=== PATIENT | female | born 1930 | race Caucasian/White ===

== ENCOUNTER 2017-06-14 17:36 | Inpatient (IN) | payer MEDICARE, BC ==
[~2017-06-14] VITALS: Ht 170.2 cm; Wt 54.0 kg
[~2017-06-14 17:36] MED LIST: ASCO1TAB13 PO; CARCD120C PO; CARV-50 PO; CHOL2000 PO; LEVO25TA50 PO; LOSA100T28 PO; NITR100C6 PO; OMEP-84 PO; PRAV10TA38 PO; RISE35TA PO; TRAM50TA2 PO; VITA150T PO
[2017-06-14] MEDS ORDERED: normal saline 1000ML IV soln IVB ONE (18:10)
[2017-06-14 18:39] LABS: BASOPHILS % (AUTO) 0.2 % (0-1); EOSINOPHILS # (AUTO) 0.1 X10'3 (0-0.9); EOSINOPHILS % (AUTO) 1.2 % (0-6); HEMATOCRIT 52.7 % (35.0-45.0); HEMOGLOBIN 17.7 g/dl (12.0-16.0); LYMPHOCYTES # (AUTO) 1.3 X10'3 (1.1-4.8); LYMPHOCYTES % (AUTO) 14.9 % (21-51); MEAN CORPUSCULAR HEMOGLOBIN 30.7 PG (27.0-31.0); MEAN CORPUSCULAR HGB CONC 33.5 % (33.0-36.5); MEAN CORPUSCULAR VOLUME 91.6 FL (78-98); MEAN PLATELET VOLUME 8.4 FL (7.4-10.4); MONOCYTES # (AUTO) 0.7 X10'3 (0-0.9); MONOCYTES % (AUTO) 7.6 % (2-12); NEUTROPHILS # (AUTO) 6.9 X10'3 (1.8-7.7); NEUTROPHILS % (AUTO) 76.1 % (42-75); PLATELET COUNT 190 X10'3 (140-440); RED BLOOD COUNT 5.76 X10'6 (4.20-5.60); RED CELL DISTRIBUTION WIDTH 14.1 % (11.5-14.5)
[2017-06-14 18:39] LABS: CLARITY,URINE CLEAR (Clear); COLOR,URINE YELLOW (Yellow); GLUCOSE, URINE NEGATIVE (Neg); KETONES,URINE 15 mg/dl (Neg); LEUKOCYTE ESTERASE ,URINE NEGATIVE (Neg); NITRITES, URINE NEGATIVE (Neg); OCCULT BLOOD,URINE MODERATE (Neg); PROTEIN,URINE >=300 mg/dl (Neg); UROBILINOGEN,URINE 0.2 E.U/dL (0.2-1.0)
[2017-06-14 18:43] LABS: UA COLLECTION TYPE FOLEY CATH
[2017-06-14 18:51] LABS: WBC,URINE 0-4 /HPF (0-4)
[2017-06-14 18:52] LABS: BACTERIA,URINE NONE SEEN /HPF (Neg); RBC,URINE 0-2 /HPF (0-2); SQUAMOUS EPITHELIAL CELL,UR NONE SEEN /LPF (FEW)
[2017-06-14 19:02] LABS: ALANINE AMINOTRANSFERASE 20 U/L (12-78); ALBUMIN 3.2 G/DL (3.4-5.0); ALBUMIN/GLOBULIN RATIO 0.6 (1.1-1.5); ALKALINE PHOSPHATASE 70 IU/L (46-116); ANION GAP 12 (8-16); ASPARTATE AMINO TRANSFERASE 30 U/L (10-37); BILIRUBIN,TOTAL 0.9 MG/DL (0.1-1.0); BLOOD UREA NITROGEN 13 MG/DL (7-18); BUN/CREATININE RATIO 9.1 (6.6-38.0); CALCIUM 9.2 MG/DL (8.5-10.1); CHLORIDE 103 MMOL/L (99-107); CKMB RELATIVE INDEX 0.6 RATIO (0-2.5); CREATINE KINASE 277 U/L (26-192); CREATININE 1.43 MG/DL (0.40-0.90); GLUCOSE 113 MG/DL (70-104); POTASSIUM 3.3 MMOL/L (3.5-5.1); SODIUM 142 MMOL/L (135-145); TOTAL CARBON DIOXIDE 26.8 MMOL/L (24-32); TOTAL PROTEIN 8.4 G/DL (6.4-8.2); eGFR 35 ML/MIN
[2017-06-14 19:19] LABS: INR 1.1 INR; PARTIAL THROMBOPLASTIN TIME 24 SECONDS (22-32); PROTHROMBIN TIME 10.8 SECONDS (9.0-12.0)
[2017-06-14] MEDS ORDERED: acetaminophen 325mg tablet PO PRN (20:10)
[2017-06-14] MEDS ORDERED: HYDROcodone/acetaminophen 5mg/325mg tablet PO PRN (20:10)
[2017-06-14] MEDS ORDERED: potassium Cl 40MEQ/NS 500ml 500 ML IV PRN ×2 (20:10)
[2017-06-14] MEDS ORDERED: magnesium 2GM in 50ml NS 50 ML IV PRN (20:10)
[2017-06-14] MEDS ORDERED: potassium Cl 20 mEq SR tablet PO PRN ×2 (20:10)
[2017-06-14] MEDS ORDERED: HYDROcodone/acetaminophen 10/325mg tab PO PRN (20:10)
[2017-06-14] MEDS ORDERED: magnesium hydroxide 30ml (MOM) UD suspension PO PRN (20:10)
[2017-06-14] MEDS ORDERED: mag hydrox/Alum hydrox/simeth 30ml oral suspension PO PRN (20:10)
[2017-06-14] MEDS ORDERED: ondansetron/PF 4mg/2ml inj IV PRN (20:10)
[2017-06-14] MEDS ORDERED: magnesium 4gm in 100ml NS 100 ML IV PRN (20:10)
[2017-06-14] MEDS ORDERED: magnesium Cl slow-release 64mg tablet PO PRN (20:10)
[2017-06-14 20:42] LABS: CHOL/HDL RATIO 3.8 (0.00-4.99); CHOLESTEROL 263 MG/DL (0-200); HDL CHOLESTEROL 69 MG/DL (35-60); LDL CHOLESTEROL 166 MG/DL (50-100); TRIGLYCERIDES 133 MG/DL (20-135)
[2017-06-14] MEDS: potassium Cl 20mEq in NS 1,000 ML IV SCH (20:49)
[2017-06-14] MEDS: nitroGLYCERIN-Tridil 50MG/D5W 250 ML IV PRN (21:45)
[2017-06-15] MEDS ORDERED: non-formulary drug (Losartan Potassium 100 MG) PO SCH (08:00)
[2017-06-15] MEDS ORDERED: levoTHYROXINE 25mcg tablet PO SCH (08:00)
[2017-06-15] MEDS ORDERED: non-formulary drug (Omeprazole* (Prilosec*) 20 MG) PO SCH (08:00)
[2017-06-15] MEDS ORDERED: pravastatin 10mg tablet PO SCH (08:00)
[2017-06-15 08:06] LABS: BASOPHILS % (AUTO) 0.4 % (0-1); EOSINOPHILS # (AUTO) 0.1 X10'3 (0-0.9); EOSINOPHILS % (AUTO) 0.9 % (0-6); HEMATOCRIT 41.3 % (35.0-45.0); LYMPHOCYTES # (AUTO) 1.9 X10'3 (1.1-4.8); LYMPHOCYTES % (AUTO) 24.3 % (21-51); MEAN CORPUSCULAR HGB CONC 33.8 % (33.0-36.5); MEAN CORPUSCULAR VOLUME 91.8 FL (78-98); MEAN PLATELET VOLUME 8.5 FL (7.4-10.4); MONOCYTES # (AUTO) 0.7 X10'3 (0-0.9); MONOCYTES % (AUTO) 8.3 % (2-12); NEUTROPHILS # (AUTO) 5.2 X10'3 (1.8-7.7); NEUTROPHILS % (AUTO) 66.1 % (42-75); PLATELET COUNT 162 X10'3 (140-440); RED CELL DISTRIBUTION WIDTH 14.3 % (11.5-14.5); WHITE BLOOD COUNT 7.9 X10'3 (4.5-11.0)
[2017-06-15] MEDS: levoTHYROXINE 75mcg tablet PO SCH (08:11)
[2017-06-15] MEDS: pantoprazole 40mg Tablet.DR PO SCH (08:11)
[2017-06-15 08:20] LABS: ALANINE AMINOTRANSFERASE 16 U/L (12-78); ALBUMIN 2.4 G/DL (3.4-5.0); ALBUMIN/GLOBULIN RATIO 0.6 (1.1-1.5); ALKALINE PHOSPHATASE 48 IU/L (46-116); ANION GAP 11 (8-16); ASPARTATE AMINO TRANSFERASE 21 U/L (10-37); BILIRUBIN,TOTAL 0.8 MG/DL (0.1-1.0); BLOOD UREA NITROGEN 14 MG/DL (7-18); BUN/CREATININE RATIO 8.9 (6.6-38.0); CALCIUM 7.7 MG/DL (8.5-10.1); CHLORIDE 107 MMOL/L (99-107); CHOL/HDL RATIO 3.7 (0.00-4.99); CHOLESTEROL 182 MG/DL (0-200); CREATININE 1.57 MG/DL (0.40-0.90); GLUCOSE 128 MG/DL (70-104); HDL CHOLESTEROL 49 MG/DL (35-60); LDL CHOLESTEROL 110 MG/DL (50-100); MAGNESIUM 1.6 MG/DL (1.5-2.4); POTASSIUM 3.6 MMOL/L (3.5-5.1); SODIUM 144 MMOL/L (135-145); TOTAL CARBON DIOXIDE 26.4 MMOL/L (24-32); TOTAL PROTEIN 6.1 G/DL (6.4-8.2); TRIGLYCERIDES 116 MG/DL (20-135); eGFR 31 ML/MIN
[2017-06-15 08:25] VITALS: BP 110/79
[2017-06-15] MEDS: diltiazem CD 120mg capsule (once-daily) PO SCH (09:22)
[2017-06-15] MEDS: aspirin 81mg tablet.DR PO SCH (09:23)
[2017-06-15] MEDS: carVEDilol 12.5mg tablet PO SCH ×2 (09:23→21:13)
[2017-06-15] MEDS: heparin, porcine 5000 units/ml vial SQ SCH ×2 (09:24→21:12)
[2017-06-15] MEDS: losartan 50mg tablet PO SCH (09:24)
[2017-06-15] MEDS: potassium Cl 20mEq in NS 1,000 ML IV SCH ×2 (09:28→16:12)
[2017-06-15] MEDS ORDERED: pravastatin 40mg tablet PO ONE (09:55)
[2017-06-15] MEDS: K and/or MAG REPLACEMENT MC SCH (09:56)
[2017-06-15 10:00] VITALS: BP 96/39
[2017-06-15] MEDS: nitroGLYCERIN-Tridil 50MG/D5W 250 ML IV PRN (10:31)
[2017-06-15 11:00] VITALS: BP 118/76
[2017-06-15 15:00] VITALS: BP 94/52
[2017-06-15 18:00] VITALS: BP 138/52
[2017-06-15 22:30] VITALS: BP 137/51
[2017-06-16 06:00] VITALS: BP 111/48
[2017-06-16 06:39] LABS: BASOPHILS % (AUTO) 0.5 % (0-1); EOSINOPHILS # (AUTO) 0.2 X10'3 (0-0.9); EOSINOPHILS % (AUTO) 2.4 % (0-6); HEMATOCRIT 41.4 % (35.0-45.0); LYMPHOCYTES # (AUTO) 1.6 X10'3 (1.1-4.8); LYMPHOCYTES % (AUTO) 23.9 % (21-51); MEAN CORPUSCULAR HEMOGLOBIN 30.9 PG (27.0-31.0); MEAN CORPUSCULAR HGB CONC 33.8 % (33.0-36.5); MEAN CORPUSCULAR VOLUME 91.4 FL (78-98); MEAN PLATELET VOLUME 9.2 FL (7.4-10.4); MONOCYTES # (AUTO) 0.7 X10'3 (0-0.9); MONOCYTES % (AUTO) 10.5 % (2-12); NEUTROPHILS # (AUTO) 4.1 X10'3 (1.8-7.7); NEUTROPHILS % (AUTO) 62.7 % (42-75); PLATELET COUNT 158 X10'3 (140-440); RED BLOOD COUNT 4.53 X10'6 (4.20-5.60); RED CELL DISTRIBUTION WIDTH 14.3 % (11.5-14.5); WHITE BLOOD COUNT 6.6 X10'3 (4.5-11.0)
[2017-06-16 07:06] LABS: ALANINE AMINOTRANSFERASE 16 U/L (12-78); ALBUMIN 2.5 G/DL (3.4-5.0); ALBUMIN/GLOBULIN RATIO 0.7 (1.1-1.5); ALKALINE PHOSPHATASE 48 IU/L (46-116); ANION GAP 10 (8-16); ASPARTATE AMINO TRANSFERASE 23 U/L (10-37); BILIRUBIN,TOTAL 0.6 MG/DL (0.1-1.0); BLOOD UREA NITROGEN 19 MG/DL (7-18); BUN/CREATININE RATIO 9.6 (6.6-38.0); CALCIUM 7.7 MG/DL (8.5-10.1); CHLORIDE 110 MMOL/L (99-107); CREATININE 1.98 MG/DL (0.40-0.90); GLUCOSE 94 MG/DL (70-104); MAGNESIUM 1.6 MG/DL (1.5-2.4); POTASSIUM 4.2 MMOL/L (3.5-5.1); SODIUM 143 MMOL/L (135-145); TOTAL CARBON DIOXIDE 23.2 MMOL/L (24-32); TOTAL PROTEIN 6.3 G/DL (6.4-8.2); eGFR 24 ML/MIN
[2017-06-16] MEDS: diltiazem CD 120mg capsule (once-daily) PO SCH (07:10)
[2017-06-16] MEDS: aspirin 81mg tablet.DR PO SCH (07:10)
[2017-06-16] MEDS: losartan 50mg tablet PO SCH (07:10)
[2017-06-16] MEDS: pantoprazole 40mg Tablet.DR PO SCH (07:11)
[2017-06-16] MEDS: heparin, porcine 5000 units/ml vial SQ SCH ×2 (07:11→19:41)
[2017-06-16] MEDS: pravastatin 40mg tablet PO SCH (07:11)
[2017-06-16] MEDS: levoTHYROXINE 75mcg tablet PO SCH (07:11)
[2017-06-16] MEDS: carVEDilol 12.5mg tablet PO SCH ×2 (07:11→19:41)
[2017-06-16] MEDS: K and/or MAG REPLACEMENT MC SCH (07:26)
[2017-06-16 08:00] VITALS: BP_SYST 131; BP_SYST 140; BP_DIAS 49; BP_DIAS 54
[2017-06-16 11:00] VITALS: BP 93/40
[2017-06-16 15:00] VITALS: BP 131/49
[2017-06-16] MEDS: normal saline 1000ml 1,000 ML IV SCH (16:50)
[2017-06-16 18:48] VITALS: BP 122/75
[2017-06-16 22:30] VITALS: BP 141/63
[2017-06-17] VITALS (8 sets, daily range): BP systolic 91–146; BP diastolic 43–75
[2017-06-17] MEDS: normal saline 1000ml 1,000 ML IV SCH (02:11)
[2017-06-17 05:23] LABS: BASOPHILS # (AUTO) 0.1 X10'3 (0-0.2); BASOPHILS % (AUTO) 1.9 % (0-1); EOSINOPHILS # (AUTO) 0.2 X10'3 (0-0.9); EOSINOPHILS % (AUTO) 2.8 % (0-6); HEMATOCRIT 43.5 % (35.0-45.0); HEMOGLOBIN 14.4 g/dl (12.0-16.0); LYMPHOCYTES # (AUTO) 1.8 X10'3 (1.1-4.8); LYMPHOCYTES % (AUTO) 23.3 % (21-51); MEAN CORPUSCULAR HEMOGLOBIN 30.7 PG (27.0-31.0); MEAN CORPUSCULAR HGB CONC 33.1 % (33.0-36.5); MEAN CORPUSCULAR VOLUME 92.8 FL (78-98); MEAN PLATELET VOLUME 9.4 FL (7.4-10.4); MONOCYTES # (AUTO) 0.7 X10'3 (0-0.9); MONOCYTES % (AUTO) 9.2 % (2-12); NEUTROPHILS # (AUTO) 4.7 X10'3 (1.8-7.7); NEUTROPHILS % (AUTO) 62.8 % (42-75); PLATELET COUNT 165 X10'3 (140-440); RED BLOOD COUNT 4.69 X10'6 (4.20-5.60); RED CELL DISTRIBUTION WIDTH 14.3 % (11.5-14.5); WHITE BLOOD COUNT 7.5 X10'3 (4.5-11.0)
[2017-06-17 06:54] LABS: ALANINE AMINOTRANSFERASE 16 U/L (12-78); ALBUMIN 2.4 G/DL (3.4-5.0); ALBUMIN/GLOBULIN RATIO 0.6 (1.1-1.5); ALKALINE PHOSPHATASE 54 IU/L (46-116); ANION GAP 9 (8-16); ASPARTATE AMINO TRANSFERASE 23 U/L (10-37); BILIRUBIN,TOTAL 0.4 MG/DL (0.1-1.0); BLOOD UREA NITROGEN 20 MG/DL (7-18); CALCIUM 7.9 MG/DL (8.5-10.1); CHLORIDE 115 MMOL/L (99-107); CREATININE 2.22 MG/DL (0.40-0.90); GLUCOSE 123 MG/DL (70-104); MAGNESIUM 1.6 MG/DL (1.5-2.4); SODIUM 148 MMOL/L (135-145); TOTAL CARBON DIOXIDE 23.6 MMOL/L (24-32); TOTAL PROTEIN 6.5 G/DL (6.4-8.2); eGFR 21 ML/MIN
[2017-06-17] MEDS: pantoprazole 40mg Tablet.DR PO SCH (07:11)
[2017-06-17] MEDS: aspirin 81mg tablet.DR PO SCH (07:11)
[2017-06-17] MEDS: diltiazem CD 120mg capsule (once-daily) PO SCH (07:11)
[2017-06-17] MEDS: levoTHYROXINE 75mcg tablet PO SCH (07:11)
[2017-06-17] MEDS: losartan 50mg tablet PO SCH (07:11)
[2017-06-17] MEDS: carVEDilol 12.5mg tablet PO SCH ×2 (07:11→20:00)
[2017-06-17] MEDS: pravastatin 40mg tablet PO SCH (07:11)
[2017-06-17] MEDS: heparin, porcine 5000 units/ml vial SQ SCH ×2 (07:12→19:22)
[2017-06-17] MEDS: K and/or MAG REPLACEMENT MC SCH (07:19)
[2017-06-17] MEDS: sodium chloride 0.45% 1,000 ML IV SCH ×2 (09:18→19:21)
[2017-06-17 22:01] LABS: CLARITY,URINE CLOUDY (Clear); COLOR,URINE YELLOW (Yellow); GLUCOSE, URINE NEGATIVE (Neg); KETONES,URINE NEGATIVE (Neg); LEUKOCYTE ESTERASE ,URINE MODERATE (Neg); NITRITES, URINE NEGATIVE (Neg); OCCULT BLOOD,URINE MODERATE (Neg); PH,URINE 5.5 (4.8-8.0); PROTEIN,URINE 30 mg/dl (Neg); UROBILINOGEN,URINE 0.2 E.U/dL (0.2-1.0)
[2017-06-17 22:02] LABS: TOTAL PROTEIN,URINE RANDOM 61.7 MG/DL
[2017-06-17 22:09] LABS: UA COLLECTION TYPE VOIDED
[2017-06-17 22:10] LABS: BACTERIA,URINE 1+ /HPF (Neg); SQUAMOUS EPITHELIAL CELL,UR FEW /LPF (FEW); WBC CLUMPS,URINE MODERATE /HPF (NEGATIVE); WBC,URINE 50-100 /HPF (0-4)
[2017-06-17 23:46] LABS: UA EOSINOPHILS FEW EOS /HPF
[2017-06-18] VITALS (8 sets, daily range): BP systolic 108–169; BP diastolic 40–119
[2017-06-18 05:21] LABS: BASOPHILS # (AUTO) 0.1 X10'3 (0-0.2); BASOPHILS % (AUTO) 0.8 % (0-1); EOSINOPHILS # (AUTO) 0.3 X10'3 (0-0.9); EOSINOPHILS % (AUTO) 4.1 % (0-6); HEMOGLOBIN 13.1 g/dl (12.0-16.0); LYMPHOCYTES # (AUTO) 1.9 X10'3 (1.1-4.8); MEAN CORPUSCULAR HEMOGLOBIN 31.1 PG (27.0-31.0); MEAN CORPUSCULAR HGB CONC 33.7 % (33.0-36.5); MEAN CORPUSCULAR VOLUME 92.3 FL (78-98); MEAN PLATELET VOLUME 9.5 FL (7.4-10.4); MONOCYTES # (AUTO) 0.7 X10'3 (0-0.9); MONOCYTES % (AUTO) 8.7 % (2-12); NEUTROPHILS # (AUTO) 4.7 X10'3 (1.8-7.7); NEUTROPHILS % (AUTO) 61.4 % (42-75); PLATELET COUNT 160 X10'3 (140-440); RED BLOOD COUNT 4.22 X10'6 (4.20-5.60); RED CELL DISTRIBUTION WIDTH 14.9 % (11.5-14.5); WHITE BLOOD COUNT 7.6 X10'3 (4.5-11.0)
[2017-06-18] MEDS: sodium chloride 0.45% 1,000 ML IV SCH ×2 (05:34→15:10)
[2017-06-18 06:19] LABS: ALANINE AMINOTRANSFERASE 16 U/L (12-78); ALBUMIN 2.3 G/DL (3.4-5.0); ALBUMIN/GLOBULIN RATIO 0.6 (1.1-1.5); ALKALINE PHOSPHATASE 50 IU/L (46-116); ANION GAP 9 (8-16); ASPARTATE AMINO TRANSFERASE 21 U/L (10-37); BILIRUBIN,TOTAL 0.4 MG/DL (0.1-1.0); BLOOD UREA NITROGEN 24 MG/DL (7-18); BUN/CREATININE RATIO 11.3 (6.6-38.0); CALCIUM 7.6 MG/DL (8.5-10.1); CHLORIDE 112 MMOL/L (99-107); CREATININE 2.13 MG/DL (0.40-0.90); GLUCOSE 127 MG/DL (70-104); MAGNESIUM 1.6 MG/DL (1.5-2.4); SODIUM 143 MMOL/L (135-145); TOTAL CARBON DIOXIDE 22.5 MMOL/L (24-32); TOTAL PROTEIN 6.1 G/DL (6.4-8.2); eGFR 22 ML/MIN
[2017-06-18] MEDS: carVEDilol 12.5mg tablet PO SCH ×2 (07:14→19:37)
[2017-06-18] MEDS: diltiazem CD 120mg capsule (once-daily) PO SCH (07:15)
[2017-06-18] MEDS: K and/or MAG REPLACEMENT MC SCH (07:15)
[2017-06-18] MEDS: levoTHYROXINE 75mcg tablet PO SCH (08:07)
[2017-06-18] MEDS: pravastatin 40mg tablet PO SCH (08:08)
[2017-06-18] MEDS: heparin, porcine 5000 units/ml vial SQ SCH ×2 (08:08→19:40)
[2017-06-18] MEDS: aspirin 81mg tablet.DR PO SCH (08:08)
[2017-06-18] MEDS: ipratropium/albuterol 3ml nebule NEB PRN ×2 (14:40→21:44)
[2017-06-19 02:00] VITALS: BP 126/49
[2017-06-19] MEDS: sodium chloride 0.45% 1,000 ML IV SCH ×2 (03:30→11:10)
[2017-06-19 05:09] LABS: BASOPHILS % (AUTO) 0.5 % (0-1); EOSINOPHILS # (AUTO) 0.3 X10'3 (0-0.9); HEMATOCRIT 40.1 % (35.0-45.0); HEMOGLOBIN 13.4 g/dl (12.0-16.0); LYMPHOCYTES # (AUTO) 1.8 X10'3 (1.1-4.8); LYMPHOCYTES % (AUTO) 23.6 % (21-51); MEAN CORPUSCULAR HEMOGLOBIN 31.1 PG (27.0-31.0); MEAN CORPUSCULAR HGB CONC 33.5 % (33.0-36.5); MEAN CORPUSCULAR VOLUME 92.8 FL (78-98); MEAN PLATELET VOLUME 9.1 FL (7.4-10.4); MONOCYTES # (AUTO) 0.7 X10'3 (0-0.9); NEUTROPHILS # (AUTO) 4.8 X10'3 (1.8-7.7); NEUTROPHILS % (AUTO) 62.9 % (42-75); PLATELET COUNT 163 X10'3 (140-440); RED BLOOD COUNT 4.32 X10'6 (4.20-5.60); RED CELL DISTRIBUTION WIDTH 14.6 % (11.5-14.5); WHITE BLOOD COUNT 7.6 X10'3 (4.5-11.0)
[2017-06-19 05:14] LABS: ALANINE AMINOTRANSFERASE 17 U/L (12-78); ALBUMIN 2.2 G/DL (3.4-5.0); ALBUMIN/GLOBULIN RATIO 0.6 (1.1-1.5); ALKALINE PHOSPHATASE 56 IU/L (46-116); ANION GAP 8 (8-16); ASPARTATE AMINO TRANSFERASE 19 U/L (10-37); BILIRUBIN,TOTAL 0.4 MG/DL (0.1-1.0); BLOOD UREA NITROGEN 19 MG/DL (7-18); BUN/CREATININE RATIO 10.5 (6.6-38.0); CALCIUM 7.8 MG/DL (8.5-10.1); CHLORIDE 113 MMOL/L (99-107); CREATININE 1.81 MG/DL (0.40-0.90); GLUCOSE 104 MG/DL (70-104); MAGNESIUM 1.5 MG/DL (1.5-2.4); POTASSIUM 3.8 MMOL/L (3.5-5.1); SODIUM 144 MMOL/L (135-145); TOTAL CARBON DIOXIDE 23.1 MMOL/L (24-32); TOTAL PROTEIN 6.2 G/DL (6.4-8.2); eGFR 26 ML/MIN
[2017-06-19 06:00] VITALS: BP 183/60
[2017-06-19] MEDS: pravastatin 40mg tablet PO SCH (07:21)
[2017-06-19] MEDS: levoTHYROXINE 75mcg tablet PO SCH (07:21)
[2017-06-19] MEDS: aspirin 81mg tablet.DR PO SCH (07:21)
[2017-06-19] MEDS: carVEDilol 12.5mg tablet PO SCH (07:22)
[2017-06-19] MEDS: diltiazem CD 120mg capsule (once-daily) PO SCH (07:22)
[2017-06-19] MEDS: heparin, porcine 5000 units/ml vial SQ SCH (07:33)
[2017-06-19 08:00] VITALS: BP_SYST 137; BP_SYST 183; BP_DIAS 56; BP_DIAS 60
[2017-06-19] MEDS: K and/or MAG REPLACEMENT MC SCH (08:00)
[2017-06-19] MEDS: ipratropium/albuterol 3ml nebule NEB PRN (10:27)
[2017-06-19 11:00] VITALS: BP 144/59
[2017-06-19] MEDS ORDERED: furosemide 20 MG/2 ML vial IV ONE (11:30)
[2017-06-19] MEDS ORDERED: ASPI-1071 PO (11:59)
[2017-06-21 06:15] LABS: ALBUMIN, UR 39.1 % (.); ALPHA-1-GLOBULIN,UR 2.8 % (.); ALPHA-2-GLOBULIN,UR 20.7 % (.); BETA GLOBULIN, UR 22.8 % (.); GAMMA GLOBULIN,UR 14.6 % (.); PROTEIN,TOTAL,URINE 63.7 mg/dL (Not Estab.)
== END 2017-06-19 16:58 | DRG 682 ==
LOC: ER 17:37 → ED HOLD 20:08 → PCU 3S 06-15 08:25
PROVIDERS: ADMIT Internal Medicine; ATTEND Family Medicine
DX: N17.9 Acute kidney failure, unspecified (principal); G93.40 Encephalopathy, unspecified; M62.82 Rhabdomyolysis; I50.9 Heart failure, unspecified; D75.1 Secondary polycythemia; E86.0 Dehydration; I13.0 Hypertensive heart and chronic kidney disease with heart failure and stage 1 through stage 4 chronic kidney disease, or unspecified chronic kidney disease; I16.1 Hypertensive emergency; N18.4 Chronic kidney disease, stage 4 (severe); W18.39XA Other fall on same level, initial encounter; E87.6 Hypokalemia; E03.9 Hypothyroidism, unspecified; E78.00 Pure hypercholesterolemia, unspecified; E78.5 Hyperlipidemia, unspecified; N26.1 Atrophy of kidney (terminal); F03.90 Unspecified dementia, unspecified severity, without behavioral disturbance, psychotic disturbance, mood disturbance, and anxiety; K21.9 Gastro-esophageal reflux disease without esophagitis; M81.0 Age-related osteoporosis without current pathological fracture; S00.81XA Abrasion of other part of head, initial encounter; Z60.2 Problems related to living alone; Z90.49 Acquired absence of other specified parts of digestive tract; Z90.710 Acquired absence of both cervix and uterus; Z79.82 Long term (current) use of aspirin; Z79.899 Other long term (current) drug therapy; Z87.891 Personal history of nicotine dependence; Y93.89 Activity, other specified; Y92.89 Other specified places as the place of occurrence of the external cause; Y99.8 Other external cause status
CPT/HCPCS: 36415; 70450; 71045; 72100; 73502; 76775; 80053; 80061; 81001; 82550; 82553; 82570; 83735; 83874; 84156; 84166; 84300; 84443; 85025; 85610; 85651; 85730; 87070; 87207; 93005; 93306; 93880; 93975; 94640; 94760; 96360; 97110; 97116; 97162; 97530; 99285; A4353; A6213; A6258; J1644; J1940; J3490; J7030

== ENCOUNTER 2017-06-28 06:14 | Inpatient (IN) | payer MEDICARE, BC ==
[2017-06-28] VITALS (9 sets, daily range): BP systolic 96–128; BP diastolic 44–64
[~2017-06-28] VITALS: Ht 144.8 cm; Wt 55.7 kg
[~2017-06-28 06:14] MED LIST changes: -ASCO1TAB13 PO; +ASPI-1071 PO; -CARCD120C PO; -NITR100C6 PO; -OMEP-84 PO; -RISE35TA PO; -TRAM50TA2 PO; -VITA150T PO
[2017-06-28] MEDS ORDERED: dexamethasone sod phosphate 10mg/ml inj IV STA (06:18)
[2017-06-28] MEDS ORDERED: ipratropium/albuterol 3ml nebule NEB ONE (06:20)
[2017-06-28] MEDS ORDERED: enalaprilat dihydrate 2.5mg/2ml vial IV ONE (06:20)
[2017-06-28] MEDS ORDERED: nitroGLYCERIN-Tridil 50MG/D5W 250 ML IV ONE (06:20)
[2017-06-28 06:42] LABS: BASOPHILS # (AUTO) 0.1 X10'3 (0-0.2); BASOPHILS % (AUTO) 0.9 % (0-1); EOSINOPHILS % (AUTO) 0.4 % (0-6); HEMATOCRIT 38.6 % (35.0-45.0); LYMPHOCYTES # (AUTO) 1.3 X10'3 (1.1-4.8); LYMPHOCYTES % (AUTO) 15.2 % (21-51); MEAN CORPUSCULAR HEMOGLOBIN 31.2 PG (27.0-31.0); MEAN CORPUSCULAR HGB CONC 33.7 % (33.0-36.5); MEAN CORPUSCULAR VOLUME 92.6 FL (78-98); MEAN PLATELET VOLUME 8.6 FL (7.4-10.4); MONOCYTES # (AUTO) 0.5 X10'3 (0-0.9); MONOCYTES % (AUTO) 6.6 % (2-12); NEUTROPHILS # (AUTO) 6.4 X10'3 (1.8-7.7); NEUTROPHILS % (AUTO) 76.9 % (42-75); PLATELET COUNT 162 X10'3 (140-440); RED BLOOD COUNT 4.17 X10'6 (4.20-5.60); RED CELL DISTRIBUTION WIDTH 14.3 % (11.5-14.5); WHITE BLOOD COUNT 8.3 X10'3 (4.5-11.0)
[2017-06-28 06:46] LABS: ABG BASE EXCESS 2.5 mmol/L (-2.0-3.0); ABG HCO3 30.3 mmol/L (22.0-26.0); ABG OXYGEN SATURATION 77.5 % (95-98); ABG PCO2 (T) 62.1 mmHg (32.0-45.0); ABG PH (T) 7.308 (7.350-7.450); ABG PO2 (T) 42.8 mmHg (83-108); ALLEN'S TEST Positive; FCOHb 0.7 % (0.5-1.5); FMetHb 0.3 % (0.3-1.12); FO2Hb 76.7 % (94-100); PATIENT TEMPERATURE 37.1; TOTAL HEMOGLOBIN 13.6 G/dl (12.0-16.0)
[2017-06-28 06:56] LABS: INR 1.1 INR; PROTHROMBIN TIME 11.3 SECONDS (9.0-12.0)
[2017-06-28 07:04] LABS: ALANINE AMINOTRANSFERASE 19 U/L (12-78); ALBUMIN 2.4 G/DL (3.4-5.0); ALBUMIN/GLOBULIN RATIO 0.6 (1.1-1.5); ALKALINE PHOSPHATASE 67 IU/L (46-116); ANION GAP 5 (8-16); ASPARTATE AMINO TRANSFERASE 27 U/L (10-37); BILIRUBIN,TOTAL 0.4 MG/DL (0.1-1.0); BLOOD UREA NITROGEN 24 MG/DL (7-18); CALCIUM 8.3 MG/DL (8.5-10.1); CHLORIDE 101 MMOL/L (99-107); CREATININE 1.41 MG/DL (0.40-0.90); GLUCOSE 139 MG/DL (70-104); POTASSIUM 5.5 MMOL/L (3.5-5.1); SODIUM 136 MMOL/L (135-145); TOTAL PROTEIN 6.7 G/DL (6.4-8.2); eGFR 35 ML/MIN
[2017-06-28] MEDS ORDERED: IPRA3AMP IH (08:47)
[2017-06-28] MEDS ORDERED: CIPR-230 PO (08:47)
[2017-06-28] MEDS ORDERED: BISA10SU60 RC (08:47)
[2017-06-28] MEDS ORDERED: NA P133E4 RC (08:47)
[2017-06-28] MEDS ORDERED: ACET-2119 PO (08:47)
[2017-06-28] MEDS ORDERED: LACTC PO (08:47)
[2017-06-28] MEDS ORDERED: HYDR-569 PO (08:47)
[2017-06-28 09:11] LABS: ABG BASE EXCESS 2.3 mmol/L (-2.0-3.0); ABG HCO3 30.5 mmol/L (22.0-26.0); ABG OXYGEN SATURATION 99.3 % (95-98); ABG PCO2 (T) 65.7 mmHg (32.0-45.0); ABG PH (T) 7.286 (7.350-7.450); ABG PO2 (T) 290.4 mmHg (83-108); FCOHb 0.4 % (0.5-1.5); FMetHb 0.4 % (0.3-1.12); FO2Hb 98.5 % (94-100); MINUTE VOLUME 8 L/min; PATIENT TEMPERATURE 37.1; RESPIRATORY RATE 16 b/min; RESPIRATORY RATE (OBSERVED) 17 b/min; TIDAL VOLUME 399 mL; TOTAL HEMOGLOBIN 12.8 G/dl (12.0-16.0)
[2017-06-28] MEDS ORDERED: furosemide 10 MG/1 ML 10ml inj IV ONE (10:00)
[2017-06-28] MEDS ORDERED: bisacodyl 10mg suppository rectal RC SCH (10:05)
[2017-06-28] MEDS ORDERED: HYDROcodone/acetaminophen 5mg/325mg tablet PO PRN (10:05)
[2017-06-28] MEDS ORDERED: non-formulary drug (Na Phos,M-B/Na Phos,Di-Ba* (Fleet's Enema*) 1 BOTTLE) RC SCH (10:05)
[2017-06-28] MEDS ORDERED: LIDOcaine 1%/PF (10mg/ml) 5ml vial ONE (10:46)
[2017-06-28 11:00] LABS: ABG BASE EXCESS 1.1 mmol/L (-2.0-3.0); ABG HCO3 28.9 mmol/L (22.0-26.0); ABG OXYGEN SATURATION 96.1 % (95-98); ABG PCO2 (T) 60.1 mmHg (32.0-45.0); ABG PH (T) 7.301 (7.350-7.450); ABG PO2 (T) 84.9 mmHg (83-108); ALLEN'S TEST Positive; FCOHb 0.6 % (0.5-1.5); FLOW 4 L/min; FMetHb 0.3 % (0.3-1.12); FO2Hb 95.2 % (94-100); PATIENT TEMPERATURE 37.1; TOTAL HEMOGLOBIN 14.2 G/dl (12.0-16.0)
[2017-06-28] MEDS: levoTHYROXINE 75mcg tablet PO SCH (12:12)
[2017-06-28] MEDS: ipratropium/albuterol 3ml nebule NEB SCH ×5 (12:24→23:35)
[2017-06-28 13:18] LABS: ALBUMIN 2.4 G/DL (3.4-5.0); ANION GAP 5 (8-16); BLOOD UREA NITROGEN 28 MG/DL (7-18); BUN/CREATININE RATIO 17.3 (6.6-38.0); CALCIUM 8.6 MG/DL (8.5-10.1); CHLORIDE 101 MMOL/L (99-107); CREATININE 1.62 MG/DL (0.40-0.90); GLUCOSE 124 MG/DL (70-104); POTASSIUM 5.3 MMOL/L (3.5-5.1); SODIUM 139 MMOL/L (135-145); TOTAL CARBON DIOXIDE 32.9 MMOL/L (24-32); eGFR 30 ML/MIN
[2017-06-28] MEDS ORDERED: acetaminophen 325mg tablet PO SCH (14:00)
[2017-06-28] MEDS ORDERED: acetaminophen 325mg tablet PO PRN (14:35)
[2017-06-28] MEDS: furosemide 20 MG/2 ML vial IV SCH ×2 (17:05→21:12)
[2017-06-28] MEDS: heparin, porcine 5000 units/ml vial SQ SCH (21:14)
[2017-06-28] MEDS: lactobacillus rhamnosus 10,000 MMU CELLS/CAPSULE PO SCH (21:14)
[2017-06-28] MEDS: carVEDilol 12.5mg tablet PO SCH (21:15)
[2017-06-28] MEDS ORDERED: azithromycin/NS 500mg/250ml 250 ML IV ONE (21:30)
[2017-06-29] VITALS (7 sets, daily range): BP systolic 82–125; BP diastolic 33–59
[2017-06-29] MEDS: CefTRIAXone/D5W-Rocephin 1gm 50 ML IV SCH ×2 (01:34→08:35)
[2017-06-29] MEDS: ipratropium/albuterol 3ml nebule NEB SCH ×10 (03:00→23:00)
[2017-06-29] MEDS: pravastatin 40mg tablet PO SCH (08:34)
[2017-06-29] MEDS: levoTHYROXINE 75mcg tablet PO SCH (08:34)
[2017-06-29] MEDS: lactobacillus rhamnosus 10,000 MMU CELLS/CAPSULE PO SCH ×2 (08:34→19:40)
[2017-06-29] MEDS: furosemide 20 MG/2 ML vial IV SCH ×2 (08:35→19:39)
[2017-06-29] MEDS: aspirin 81mg tablet.DR PO SCH (08:35)
[2017-06-29] MEDS: pantoprazole 40 MG vial IV SCH (08:36)
[2017-06-29] MEDS: heparin, porcine 5000 units/ml vial SQ SCH ×2 (08:37→19:40)
[2017-06-29 08:38] LABS: ALANINE AMINOTRANSFERASE 17 U/L (12-78); ALBUMIN 2.4 G/DL (3.4-5.0); ALBUMIN/GLOBULIN RATIO 0.6 (1.1-1.5); ALKALINE PHOSPHATASE 63 IU/L (46-116); ANION GAP 9 (8-16); ASPARTATE AMINO TRANSFERASE 19 U/L (10-37); BILIRUBIN,TOTAL 0.4 MG/DL (0.1-1.0); BLOOD UREA NITROGEN 38 MG/DL (7-18); BUN/CREATININE RATIO 22.2 (6.6-38.0); CALCIUM 8.2 MG/DL (8.5-10.1); CHLORIDE 101 MMOL/L (99-107); CREATININE 1.71 MG/DL (0.40-0.90); GLUCOSE 108 MG/DL (70-104); POTASSIUM 4.2 MMOL/L (3.5-5.1); SODIUM 139 MMOL/L (135-145); TOTAL CARBON DIOXIDE 29.1 MMOL/L (24-32); TOTAL PROTEIN 6.5 G/DL (6.4-8.2); eGFR 28 ML/MIN
[2017-06-29] MEDS: carVEDilol 12.5mg tablet PO SCH ×2 (10:54→19:40)
[2017-06-29] MEDS: normal saline 1000ml 1,000 ML IV SCH (11:09)
[2017-06-29] MEDS: LACTOSE-FREE FOOD 237ML (BOOST) PO SCH (18:00)
[2017-06-30 03:00] VITALS: BP 113/55
[2017-06-30] MEDS: ipratropium/albuterol 3ml nebule NEB SCH ×10 (03:00→23:00)
[2017-06-30 05:42] LABS: BASOPHILS % (AUTO) 0.2 % (0-1); EOSINOPHILS % (AUTO) 0.3 % (0-6); HEMATOCRIT 35.4 % (35.0-45.0); HEMOGLOBIN 11.8 g/dl (12.0-16.0); LYMPHOCYTES # (AUTO) 1.1 X10'3 (1.1-4.8); LYMPHOCYTES % (AUTO) 12.8 % (21-51); MEAN CORPUSCULAR HEMOGLOBIN 30.6 PG (27.0-31.0); MEAN CORPUSCULAR HGB CONC 33.3 % (33.0-36.5); MEAN CORPUSCULAR VOLUME 91.9 FL (78-98); MEAN PLATELET VOLUME 8.7 FL (7.4-10.4); MONOCYTES # (AUTO) 0.5 X10'3 (0-0.9); NEUTROPHILS % (AUTO) 80.7 % (42-75); PLATELET COUNT 164 X10'3 (140-440); RED BLOOD COUNT 3.85 X10'6 (4.20-5.60); RED CELL DISTRIBUTION WIDTH 14.3 % (11.5-14.5); WHITE BLOOD COUNT 8.6 X10'3 (4.5-11.0)
[2017-06-30 06:00] VITALS: BP 132/54
[2017-06-30 06:14] LABS: INR 1.1 INR; PROTHROMBIN TIME 11.7 SECONDS (9.0-12.0)
[2017-06-30 06:34] LABS: ANION GAP 6 (8-16); BLOOD UREA NITROGEN 44 MG/DL (7-18); BUN/CREATININE RATIO 24.9 (6.6-38.0); CALCIUM 7.8 MG/DL (8.5-10.1); CHLORIDE 102 MMOL/L (99-107); CREATININE 1.77 MG/DL (0.40-0.90); GLUCOSE 117 MG/DL (70-104); MAGNESIUM 1.8 MG/DL (1.5-2.4); POTASSIUM 3.9 MMOL/L (3.5-5.1); SODIUM 141 MMOL/L (135-145); TOTAL CARBON DIOXIDE 33.3 MMOL/L (24-32); eGFR 27 ML/MIN
[2017-06-30] MEDS: carVEDilol 12.5mg tablet PO SCH ×2 (08:00→19:23)
[2017-06-30] MEDS: CefTRIAXone/D5W-Rocephin 1gm 50 ML IV SCH (08:48)
[2017-06-30] MEDS: pantoprazole 40 MG vial IV SCH (09:00)
[2017-06-30] MEDS: furosemide 20 MG/2 ML vial IV SCH ×2 (09:00→19:24)
[2017-06-30] MEDS: pravastatin 40mg tablet PO SCH (09:07)
[2017-06-30] MEDS: levoTHYROXINE 75mcg tablet PO SCH (09:07)
[2017-06-30] MEDS: lactobacillus rhamnosus 10,000 MMU CELLS/CAPSULE PO SCH ×2 (09:07→19:23)
[2017-06-30] MEDS: aspirin 81mg tablet.DR PO SCH (09:07)
[2017-06-30] MEDS: heparin, porcine 5000 units/ml vial SQ SCH ×2 (09:07→19:24)
[2017-06-30] MEDS: LACTOSE-FREE FOOD 237ML (BOOST) PO SCH ×3 (09:13→18:00)
[2017-06-30 11:00] VITALS: BP 124/40
[2017-06-30 15:00] VITALS: BP 122/43
[2017-06-30 19:00] VITALS: BP 124/46
[2017-06-30 23:00] VITALS: BP 134/52
[2017-07-01 03:00] VITALS: BP 142/57
[2017-07-01] MEDS: ipratropium/albuterol 3ml nebule NEB SCH ×2 (03:00)
[2017-07-01 05:42] LABS: MAGNESIUM 1.7 MG/DL (1.5-2.4); POTASSIUM 3.7 MMOL/L (3.5-5.1)
[2017-07-01 06:45] VITALS: BP 157/61
[2017-07-01] MEDS: LACTOSE-FREE FOOD 237ML (BOOST) PO SCH ×3 (08:00→18:00)
[2017-07-01] MEDS ORDERED: ipratropium/albuterol 3ml nebule NEB PRN (08:10)
[2017-07-01 08:25] LABS: ALBUMIN 2.2 G/DL (3.4-5.0); ANION GAP 4 (8-16); BLOOD UREA NITROGEN 44 MG/DL (7-18); BUN/CREATININE RATIO 27.7 (6.6-38.0); CALCIUM 8.3 MG/DL (8.5-10.1); CHLORIDE 102 MMOL/L (99-107); CREATININE 1.59 MG/DL (0.40-0.90); GLUCOSE 102 MG/DL (70-104); SODIUM 142 MMOL/L (135-145); TOTAL CARBON DIOXIDE 35.6 MMOL/L (24-32); eGFR 31 ML/MIN
[2017-07-01] MEDS: lactobacillus rhamnosus 10,000 MMU CELLS/CAPSULE PO SCH ×2 (08:51→19:55)
[2017-07-01] MEDS: pantoprazole 40 MG vial IV SCH (08:51)
[2017-07-01] MEDS: carVEDilol 12.5mg tablet PO SCH ×2 (08:52→19:55)
[2017-07-01] MEDS: aspirin 81mg tablet.DR PO SCH (08:52)
[2017-07-01] MEDS: levoTHYROXINE 75mcg tablet PO SCH (08:52)
[2017-07-01] MEDS: CefTRIAXone/D5W-Rocephin 1gm 50 ML IV SCH (08:53)
[2017-07-01] MEDS: furosemide 20 MG/2 ML vial IV SCH ×2 (08:53→20:31)
[2017-07-01] MEDS: heparin, porcine 5000 units/ml vial SQ SCH ×2 (08:54→19:56)
[2017-07-01] MEDS: normal saline 1000ml 1,000 ML IV SCH (10:55)
[2017-07-01 11:00] VITALS: BP 145/56
[2017-07-01] MEDS: pravastatin 40mg tablet PO SCH (11:13)
[2017-07-01] MEDS: lisinopril 2.5mg tablet PO SCH (11:13)
[2017-07-01] MEDS: azithromycin/NS 500mg/250ml 250 ML IV SCH (11:14)
[2017-07-01 15:00] VITALS: BP 103/44
[2017-07-01] MEDS ORDERED: potassium Cl 20 mEq SR tablet PO PRN ×2 (16:10)
[2017-07-01] MEDS ORDERED: magnesium Cl slow-release 64mg tablet PO PRN (16:10)
[2017-07-01] MEDS ORDERED: potassium Cl 40MEQ/NS 500ml 500 ML IV PRN ×2 (16:10)
[2017-07-01] MEDS ORDERED: magnesium 4gm in 100ml NS 100 ML IV PRN (16:10)
[2017-07-01] MEDS ORDERED: magnesium 2GM in 50ml NS 50 ML IV PRN (16:10)
[2017-07-01 19:00] VITALS: BP_SYST 106; BP_SYST 116; BP_DIAS 40; BP_DIAS 63
[2017-07-01 23:00] VITALS: BP 113/47
[2017-07-02 03:00] VITALS: BP 121/54
[2017-07-02 05:51] LABS: MAGNESIUM 1.6 MG/DL (1.5-2.4); POTASSIUM 3.7 MMOL/L (3.5-5.1)
[2017-07-02 07:30] VITALS: BP 155/54
[2017-07-02] MEDS: CefTRIAXone/D5W-Rocephin 1gm 50 ML IV SCH (08:33)
[2017-07-02] MEDS: azithromycin/NS 500mg/250ml 250 ML IV SCH (08:33)
[2017-07-02] MEDS: lisinopril 2.5mg tablet PO SCH (08:39)
[2017-07-02] MEDS: aspirin 81mg tablet.DR PO SCH (08:39)
[2017-07-02] MEDS: pravastatin 40mg tablet PO SCH (08:39)
[2017-07-02] MEDS: carVEDilol 12.5mg tablet PO SCH ×2 (08:39→20:00)
[2017-07-02] MEDS: levoTHYROXINE 75mcg tablet PO SCH (08:39)
[2017-07-02] MEDS: pantoprazole 40mg Tablet.DR PO SCH (08:40)
[2017-07-02] MEDS: lactobacillus rhamnosus 10,000 MMU CELLS/CAPSULE PO SCH ×2 (08:40→20:00)
[2017-07-02] MEDS: heparin, porcine 5000 units/ml vial SQ SCH ×2 (08:40→20:00)
[2017-07-02] MEDS: furosemide 20 MG/2 ML vial IV SCH ×2 (08:41→12:41)
[2017-07-02] MEDS: LACTOSE-FREE FOOD 237ML (BOOST) PO SCH ×3 (08:41→18:00)
[2017-07-02 11:30] VITALS: BP 117/58
[2017-07-02 15:00] VITALS: BP 123/50
[2017-07-02 19:00] VITALS: BP 106/41
[2017-07-02 23:00] VITALS: BP 116/39
[2017-07-03] MEDS: normal saline 1000ml 1,000 ML IV SCH (01:09)
[2017-07-03 03:00] VITALS: BP 115/47
[2017-07-03 05:23] LABS: MAGNESIUM 1.6 MG/DL (1.5-2.4); POTASSIUM 3.8 MMOL/L (3.5-5.1)
[2017-07-03 06:00] VITALS: BP 117/45
[2017-07-03] MEDS ORDERED: furosemide 40mg tablet PO SCH (08:00)
[2017-07-03] MEDS: CefTRIAXone/D5W-Rocephin 1gm 50 ML IV SCH (08:16)
[2017-07-03] MEDS: heparin, porcine 5000 units/ml vial SQ SCH (08:17)
[2017-07-03] MEDS: azithromycin/NS 500mg/250ml 250 ML IV SCH (08:17)
[2017-07-03] MEDS: carVEDilol 12.5mg tablet PO SCH (08:19)
[2017-07-03] MEDS: lisinopril 2.5mg tablet PO SCH (08:19)
[2017-07-03] MEDS: pantoprazole 40mg Tablet.DR PO SCH (08:19)
[2017-07-03] MEDS: pravastatin 40mg tablet PO SCH (08:20)
[2017-07-03] MEDS: lactobacillus rhamnosus 10,000 MMU CELLS/CAPSULE PO SCH (08:20)
[2017-07-03] MEDS: aspirin 81mg tablet.DR PO SCH (08:20)
[2017-07-03] MEDS: levoTHYROXINE 75mcg tablet PO SCH (08:20)
[2017-07-03] MEDS: LACTOSE-FREE FOOD 237ML (BOOST) PO SCH ×2 (08:21→13:48)
[2017-07-03] MEDS ORDERED: magnesium oxide 400mg tablet PO ONE (08:40)
[2017-07-03 12:00] VITALS: BP 112/49
[2017-07-03 14:09] LABS: CREATININE 1.58 MG/DL (0.40-0.90); eGFR 31 ML/MIN
[2017-07-03 16:00] VITALS: BP 109/45
== END 2017-07-03 17:35 | DRG 291 ==
LOC: ER 06:14 → ED HOLD 08:59 → EDBEDREQSVC 13:54 → PCU 3S 15:02
PROVIDERS: ADMIT Nurse Practitioner Family; ATTEND Family Medicine
PROC: 5A09357 Assistance with Respiratory Ventilation, Less than 24 Consecutive Hours, Continuous Positive Airway Pressure (ICD-10-PCS; principal; 2017-06-28)
PROC: 0W9B3ZZ Drainage of Left Pleural Cavity, Percutaneous Approach (ICD-10-PCS; 2017-06-28)
DX: I13.0 Hypertensive heart and chronic kidney disease with heart failure and stage 1 through stage 4 chronic kidney disease, or unspecified chronic kidney disease (principal); J96.00 Acute respiratory failure, unspecified whether with hypoxia or hypercapnia; E87.4 Mixed disorder of acid-base balance; E44.0 Moderate protein-calorie malnutrition; J90 Pleural effusion, not elsewhere classified; I50.33 Acute on chronic diastolic (congestive) heart failure; E03.9 Hypothyroidism, unspecified; E78.00 Pure hypercholesterolemia, unspecified; E78.5 Hyperlipidemia, unspecified; F41.9 Anxiety disorder, unspecified; N18.3 Chronic kidney disease, stage 3 (moderate); Z60.2 Problems related to living alone; Z66 Do not resuscitate; Z90.49 Acquired absence of other specified parts of digestive tract; Z90.710 Acquired absence of both cervix and uterus; Z79.82 Long term (current) use of aspirin; Z79.899 Other long term (current) drug therapy; Z87.891 Personal history of nicotine dependence; Z68.26 Body mass index [BMI] 26.0-26.9, adult
CPT/HCPCS: 32555; 36415; 36600; 71045; 71046; 80048; 80053; 82565; 82803; 83605; 83735; 83880; 84132; 84484; 85018; 85025; 85610; 87040; 87070; 87502; 87503; 93005; 94640; 94660; 94760; 96365; 96375; 97110; 97116; 97161; 97530; 99291; A6213; A6250; C9113; J0456; J0696; J1100; J1644; J1940; J2001; J3490; J7030

== ENCOUNTER 2018-02-18 15:57 | Inpatient (IN) | payer MEDICARE, BC ==
[~2018-02-18] VITALS: Ht 147.3 cm; Wt 45.9 kg
[2018-02-18] MEDS: furosemide 20 MG/2 ML vial IV SCH (01:00)
[~2018-02-18 15:57] MED LIST changes: +ACET-2119 PO; +BISA10SU60 RC; -CHOL2000 PO; +CIPR-230 PO; +HYDR-4383 PO; +IPRA3AMP31 IH; +LACTC PO; -LOSA100T28 PO; +NA P133E4 RC
[2018-02-18] MEDS ORDERED: normal saline 1000ML IV soln IVB ONE (16:20)
[2018-02-18 17:42] LABS: BASOPHILS % (AUTO) 0.1 % (0-1); EOSINOPHILS # (AUTO) 0.1 X10'3 (0-0.9); EOSINOPHILS % (AUTO) 1.5 % (0-6); HEMATOCRIT 47.4 % (35.0-45.0); HEMOGLOBIN 15.5 g/dl (12.0-16.0); LYMPHOCYTES # (AUTO) 1.9 X10'3 (1.1-4.8); MEAN CORPUSCULAR HEMOGLOBIN 30.5 PG (27.0-31.0); MEAN CORPUSCULAR HGB CONC 32.8 % (33.0-36.5); MEAN CORPUSCULAR VOLUME 92.9 FL (78-98); MONOCYTES # (AUTO) 0.6 X10'3 (0-0.9); MONOCYTES % (AUTO) 10.1 % (2-12); NEUTROPHILS # (AUTO) 3.7 X10'3 (1.8-7.7); NEUTROPHILS % (AUTO) 58.3 % (42-75); PLATELET COUNT 153 X10'3 (140-440); WHITE BLOOD COUNT 6.4 X10'3 (4.5-11.0)
[2018-02-18 18:04] LABS: PARTIAL THROMBOPLASTIN TIME 21 SECONDS (22-32); PROTHROMBIN TIME 10.4 SECONDS (9.0-12.0)
[2018-02-18 18:07] LABS: ALANINE AMINOTRANSFERASE 18 U/L (12-78); ALBUMIN 3.3 G/DL (3.4-5.0); ALBUMIN/GLOBULIN RATIO 0.8 (1.1-1.5); ALKALINE PHOSPHATASE 57 IU/L (46-116); ANION GAP 7 (8-16); ASPARTATE AMINO TRANSFERASE 29 U/L (10-37); BILIRUBIN,TOTAL 0.8 MG/DL (0.1-1.0); BLOOD UREA NITROGEN 26 MG/DL (7-18); BUN/CREATININE RATIO 17.7 (6.6-38.0); CALCIUM 9.4 MG/DL (8.5-10.1); CHLORIDE 103 MMOL/L (99-107); CREATININE 1.47 MG/DL (0.40-0.90); GLUCOSE 113 MG/DL (70-104); POTASSIUM 4.3 MMOL/L (3.5-5.1); SODIUM 141 MMOL/L (135-145); TOTAL CARBON DIOXIDE 31.4 MMOL/L (24-32); TOTAL PROTEIN 7.4 G/DL (6.4-8.2); eGFR 33 ML/MIN
[2018-02-18 18:51] LABS: CLARITY,URINE CLEAR (Clear); COLOR,URINE YELLOW (Yellow); GLUCOSE, URINE NEGATIVE (Neg); KETONES,URINE NEGATIVE (Neg); LEUKOCYTE ESTERASE ,URINE NEGATIVE (Neg); NITRITES, URINE NEGATIVE (Neg); OCCULT BLOOD,URINE NEGATIVE (Neg); PROTEIN,URINE NEGATIVE (Neg); UROBILINOGEN,URINE 0.2 E.U/dL (0.2-1.0)
[2018-02-18 19:05] LABS: UA COLLECTION TYPE CLN CATCH MIDSTREAM
[2018-02-18] MEDS ORDERED: [UNRECOGNIZED DRUG - OTHER] (20:41)
[2018-02-18] MEDS ORDERED: temazepam 15mg capsule PO PRN (21:00)
[2018-02-18] MEDS: normal saline 1000ml 1,000 ML IV SCH (22:07)
[2018-02-18] MEDS ORDERED: ondansetron/PF 4mg/2ml inj IV PRN (22:10)
[2018-02-18] MEDS ORDERED: HYDROcodone/acetaminophen 5mg/325mg tablet PO PRN (22:10)
[2018-02-18] MEDS ORDERED: morphine 2 MG/ML inj. syringe IV PRN (22:10)
[2018-02-18] MEDS ORDERED: bisacodyl 10mg suppository rectal RC PRN (22:10)
[2018-02-18] MEDS ORDERED: magnesium hydroxide 30ml (MOM) UD suspension PO PRN (22:10)
[2018-02-18] MEDS ORDERED: acetaminophen 650mg rectal suppository RC PRN (22:10)
[2018-02-18] MEDS ORDERED: mag hydrox/Alum hydrox/simeth 30ml oral suspension PO PRN (22:10)
[2018-02-18] MEDS ORDERED: acetaminophen 325mg tablet PO PRN ×2 (22:10)
[2018-02-18] MEDS ORDERED: HYDROmorphone 1 mg/ml syringe IV PRN (22:10)
[2018-02-18] MEDS ORDERED: diphenhydrAMINE 50 mg/ml inj IV PRN (22:10)
[2018-02-18] MEDS ORDERED: metoclopramide 5 mg/ml inj IV PRN (22:10)
[2018-02-18] MEDS ORDERED: diphenhydrAMINE 25mg capsule PO PRN (22:10)
[2018-02-18 22:52] LABS: CREATINE KINASE 49 U/L (26-192); LIPASE 181 U/L (73-393); PHOSPHORUS 3.6 MG/DL (2.3-4.5)
[2018-02-18 22:54] LABS: HEMOGLOBIN A1C 5.9 % (4.5-6.2)
[2018-02-18] MEDS ORDERED: amLODIPine 5mg tablet PO SCH (23:30)
[2018-02-18 23:34] LABS: D-DIMER 4.27 MG/L FEU (0-0.50)
[2018-02-19] VITALS (7 sets, daily range): BP systolic 116–173; BP diastolic 69–79
[2018-02-19] MEDS ORDERED: amLODIPine 2.5mg tablet PO SCH (00:04)
[2018-02-19] MEDS ORDERED: ASPI81TA52 PO (00:09)
[2018-02-19] MEDS: normal saline 1000ml 1,000 ML IV SCH ×2 (01:54→14:42)
[2018-02-19] MEDS: hydrALAZINE 20mg/ml inj. IV SCH ×3 (02:38→14:00)
[2018-02-19 06:29] LABS: BASOPHILS % (AUTO) 0.4 % (0-1); EOSINOPHILS # (AUTO) 0.2 X10'3 (0-0.9); EOSINOPHILS % (AUTO) 2.8 % (0-6); HEMATOCRIT 47.5 % (35.0-45.0); HEMOGLOBIN 15.6 g/dl (12.0-16.0); LYMPHOCYTES # (AUTO) 1.8 X10'3 (1.1-4.8); MEAN CORPUSCULAR HEMOGLOBIN 30.5 PG (27.0-31.0); MEAN CORPUSCULAR HGB CONC 32.8 % (33.0-36.5); MEAN CORPUSCULAR VOLUME 92.9 FL (78-98); MONOCYTES # (AUTO) 0.8 X10'3 (0-0.9); MONOCYTES % (AUTO) 11.3 % (2-12); NEUTROPHILS # (AUTO) 4.6 X10'3 (1.8-7.7); NEUTROPHILS % (AUTO) 61.5 % (42-75); PLATELET COUNT 193 X10'3 (140-440); RED BLOOD COUNT 5.11 X10'6 (4.20-5.60); RED CELL DISTRIBUTION WIDTH 15.2 % (11.5-14.5); WHITE BLOOD COUNT 7.5 X10'3 (4.5-11.0)
[2018-02-19 06:42] LABS: ALANINE AMINOTRANSFERASE 16 U/L (12-78); ALBUMIN 3.1 G/DL (3.4-5.0); ALBUMIN/GLOBULIN RATIO 0.8 (1.1-1.5); ALKALINE PHOSPHATASE 59 IU/L (46-116); ANION GAP 7 (8-16); ASPARTATE AMINO TRANSFERASE 25 U/L (10-37); BILIRUBIN,TOTAL 0.9 MG/DL (0.1-1.0); BLOOD UREA NITROGEN 25 MG/DL (7-18); BUN/CREATININE RATIO 17.6 (6.6-38.0); CALCIUM 9.3 MG/DL (8.5-10.1); CHLORIDE 104 MMOL/L (99-107); CREATININE 1.42 MG/DL (0.40-0.90); GLUCOSE 102 MG/DL (70-104); POTASSIUM 3.6 MMOL/L (3.5-5.1); SODIUM 145 MMOL/L (135-145); TOTAL CARBON DIOXIDE 33.8 MMOL/L (24-32); TOTAL PROTEIN 7.1 G/DL (6.4-8.2); eGFR 35 ML/MIN
[2018-02-19 06:45] LABS: CHOL/HDL RATIO 2.9 (0.00-4.99); CHOLESTEROL 157 MG/DL (0-200); HDL CHOLESTEROL 54 MG/DL (35-60); LDL CHOLESTEROL 85 MG/DL (50-100); TRIGLYCERIDES 119 MG/DL (20-135)
[2018-02-19] MEDS ORDERED: aspirin 81mg tablet.DR PO SCH (08:00)
[2018-02-19] MEDS ORDERED: acetaminophen 325mg tablet PO SCH (08:00)
[2018-02-19] MEDS: furosemide 20 MG/2 ML vial IV SCH (08:00)
[2018-02-19] MEDS: docusate sod 100mg capsule PO SCH ×2 (08:00→20:00)
[2018-02-19] MEDS: carVEDilol 12.5mg tablet PO SCH ×2 (08:00→20:00)
[2018-02-19] MEDS ORDERED: nitroGLYCERIN 0.1mg/hour patch TD SCH (08:00)
[2018-02-19] MEDS ORDERED: FURO-150 PO (08:07)
[2018-02-19] MEDS ORDERED: iohexol 350MG/ML 100ml bottle IV ONE ×2 (09:40→13:07)
[2018-02-19] MEDS ORDERED: aspirin 325mg tablet PO SCH (11:05)
[2018-02-19] MEDS: pravastatin 40mg tablet PO SCH (15:41)
[2018-02-19] MEDS: levoTHYROXINE 75mcg tablet PO SCH (15:41)
[2018-02-19] MEDS: heparin, porcine 5000 units/ml vial SQ SCH ×2 (15:42→20:00)
[2018-02-20] VITALS (10 sets, daily range): BP systolic 95–149; BP diastolic 47–73
[2018-02-20] MEDS: normal saline 1000ml 1,000 ML IV SCH ×2 (04:06→17:10)
[2018-02-20 06:34] LABS: BASOPHILS % (AUTO) 0.3 % (0-1); EOSINOPHILS # (AUTO) 0.1 X10'3 (0-0.9); EOSINOPHILS % (AUTO) 1.3 % (0-6); HEMATOCRIT 45.9 % (35.0-45.0); HEMOGLOBIN 14.9 g/dl (12.0-16.0); LYMPHOCYTES % (AUTO) 9.3 % (21-51); MEAN CORPUSCULAR HEMOGLOBIN 30.4 PG (27.0-31.0); MEAN CORPUSCULAR HGB CONC 32.6 % (33.0-36.5); MEAN CORPUSCULAR VOLUME 93.4 FL (78-98); MEAN PLATELET VOLUME 9.1 FL (7.4-10.4); MONOCYTES # (AUTO) 0.3 X10'3 (0-0.9); MONOCYTES % (AUTO) 3.1 % (2-12); NEUTROPHILS # (AUTO) 9.3 X10'3 (1.8-7.7); PLATELET COUNT 184 X10'3 (140-440); RED BLOOD COUNT 4.91 X10'6 (4.20-5.60); RED CELL DISTRIBUTION WIDTH 14.7 % (11.5-14.5); WHITE BLOOD COUNT 10.8 X10'3 (4.5-11.0)
[2018-02-20 06:51] LABS: ALANINE AMINOTRANSFERASE 14 U/L (12-78); ALBUMIN 2.7 G/DL (3.4-5.0); ALBUMIN/GLOBULIN RATIO 0.7 (1.1-1.5); ALKALINE PHOSPHATASE 62 IU/L (46-116); ANION GAP 8 (8-16); ASPARTATE AMINO TRANSFERASE 22 U/L (10-37); BILIRUBIN,TOTAL 0.7 MG/DL (0.1-1.0); BLOOD UREA NITROGEN 25 MG/DL (7-18); CALCIUM 8.8 MG/DL (8.5-10.1); CHLORIDE 105 MMOL/L (99-107); CHOL/HDL RATIO 2.5 (0.00-4.99); CHOLESTEROL 133 MG/DL (0-200); CREATININE 1.47 MG/DL (0.40-0.90); GLUCOSE 125 MG/DL (70-104); HDL CHOLESTEROL 53 MG/DL (35-60); LDL CHOLESTEROL 68 MG/DL (50-100); POTASSIUM 3.5 MMOL/L (3.5-5.1); SODIUM 141 MMOL/L (135-145); TOTAL CARBON DIOXIDE 27.6 MMOL/L (24-32); TOTAL PROTEIN 6.5 G/DL (6.4-8.2); TRIGLYCERIDES 73 MG/DL (20-135); eGFR 33 ML/MIN
[2018-02-20] MEDS: furosemide 20 MG/2 ML vial IV SCH (08:00)
[2018-02-20] MEDS ORDERED: enoxaparin 40mg/0.4ml syringe SQ SCH (08:00)
[2018-02-20] MEDS: carVEDilol 12.5mg tablet PO SCH ×2 (08:00→19:50)
[2018-02-20] MEDS: docusate sod 100mg capsule PO SCH ×2 (08:07→19:50)
[2018-02-20] MEDS: aspirin 81mg tablet.DR PO SCH (08:07)
[2018-02-20] MEDS: levoTHYROXINE 75mcg tablet PO SCH (08:07)
[2018-02-20] MEDS: heparin, porcine 5000 units/ml vial SQ SCH ×2 (08:08→19:50)
[2018-02-20] MEDS: pravastatin 40mg tablet PO SCH (08:09)
[2018-02-20] MEDS: levetiracetam 250mg tablet PO SCH (22:47)
[2018-02-21 01:28] VITALS: BP 94/49
[2018-02-21 05:28] VITALS: BP 108/51
[2018-02-21] MEDS: furosemide 20 MG/2 ML vial IV SCH (08:00)
[2018-02-21] MEDS: normal saline 1000ml 1,000 ML IV SCH ×2 (08:19→16:30)
[2018-02-21 09:40] VITALS: BP 101/51
[2018-02-21] MEDS: aspirin 81mg tablet.DR PO SCH (09:59)
[2018-02-21] MEDS: levoTHYROXINE 75mcg tablet PO SCH (09:59)
[2018-02-21] MEDS: carVEDilol 12.5mg tablet PO SCH (09:59)
[2018-02-21] MEDS: pravastatin 40mg tablet PO SCH (09:59)
[2018-02-21] MEDS: docusate sod 100mg capsule PO SCH ×2 (09:59→20:00)
[2018-02-21] MEDS: levetiracetam 250mg tablet PO SCH ×2 (10:00→19:51)
[2018-02-21] MEDS: heparin, porcine 5000 units/ml vial SQ SCH ×2 (10:00→19:51)
[2018-02-21 14:30] VITALS: BP 93/44
[2018-02-21 16:30] VITALS: BP_SYST 79; BP_SYST 81; BP_SYST 91; BP_DIAS 41; BP_DIAS 44; BP_DIAS 46
[2018-02-21 21:00] VITALS: BP 93/49
[2018-02-22] MEDS: normal saline 1000ml 1,000 ML IV SCH (02:47)
[2018-02-22 06:00] VITALS: BP 102/40
[2018-02-22 07:16] LABS: BASOPHILS % (AUTO) 0.3 % (0-1); EOSINOPHILS # (AUTO) 0.8 X10'3 (0-0.9); EOSINOPHILS % (AUTO) 8.8 % (0-6); HEMOGLOBIN 12.3 g/dl (12.0-16.0); LYMPHOCYTES # (AUTO) 1.4 X10'3 (1.1-4.8); MEAN CORPUSCULAR HEMOGLOBIN 30.9 PG (27.0-31.0); MEAN CORPUSCULAR HGB CONC 33.3 % (33.0-36.5); MEAN PLATELET VOLUME 8.8 FL (7.4-10.4); MONOCYTES # (AUTO) 0.4 X10'3 (0-0.9); MONOCYTES % (AUTO) 4.3 % (2-12); NEUTROPHILS # (AUTO) 6.3 X10'3 (1.8-7.7); NEUTROPHILS % (AUTO) 70.6 % (42-75); PLATELET COUNT 156 X10'3 (140-440); RED BLOOD COUNT 3.98 X10'6 (4.20-5.60); RED CELL DISTRIBUTION WIDTH 15.4 % (11.5-14.5); WHITE BLOOD COUNT 8.9 X10'3 (4.5-11.0)
[2018-02-22 07:43] LABS: ALANINE AMINOTRANSFERASE 12 U/L (12-78); ALBUMIN 2.1 G/DL (3.4-5.0); ALBUMIN/GLOBULIN RATIO 0.7 (1.1-1.5); ALKALINE PHOSPHATASE 47 IU/L (46-116); ANION GAP 8 (8-16); ASPARTATE AMINO TRANSFERASE 14 U/L (10-37); BILIRUBIN,TOTAL 0.4 MG/DL (0.1-1.0); BLOOD UREA NITROGEN 29 MG/DL (7-18); BUN/CREATININE RATIO 16.6 (6.6-38.0); CALCIUM 7.5 MG/DL (8.5-10.1); CHLORIDE 110 MMOL/L (99-107); CREATININE 1.75 MG/DL (0.40-0.90); GLUCOSE 118 MG/DL (70-104); POTASSIUM 3.7 MMOL/L (3.5-5.1); SODIUM 142 MMOL/L (135-145); TOTAL CARBON DIOXIDE 23.6 MMOL/L (24-32); TOTAL PROTEIN 5.2 G/DL (6.4-8.2); eGFR 27 ML/MIN
[2018-02-22 08:00] VITALS: BP_SYST 107; BP_SYST 111; BP_SYST 98; BP_DIAS 49; BP_DIAS 53; BP_DIAS 62
[2018-02-22] MEDS: furosemide 20 MG/2 ML vial IV SCH (08:00)
[2018-02-22] MEDS: heparin, porcine 5000 units/ml vial SQ SCH (08:18)
[2018-02-22] MEDS: aspirin 81mg tablet.DR PO SCH (08:19)
[2018-02-22] MEDS: pravastatin 40mg tablet PO SCH (08:19)
[2018-02-22] MEDS: levoTHYROXINE 75mcg tablet PO SCH (08:19)
[2018-02-22] MEDS: docusate sod 100mg capsule PO SCH (08:19)
[2018-02-22] MEDS: levetiracetam 250mg tablet PO SCH (08:19)
[2018-02-22 08:26] VITALS: BP 100/45
[2018-02-22 10:00] VITALS: BP 105/43
[2018-02-22] MEDS ORDERED: CLOP75TA15 PO (11:14)
[2018-02-22 14:00] VITALS: BP 109/63
== END 2018-02-22 16:46 | DRG 64 ==
LOC: ER 15:57 → ED HOLD 22:07 → ORTHO 4S 23:59
PROVIDERS: ADMIT Family Medicine; ATTEND Internal Medicine
PROC: B3251ZZ Computerized Tomography (CT Scan) of Bilateral Common Carotid Arteries using Low Osmolar Contrast (ICD-10-PCS; principal; 2018-02-19)
PROC: B32G1ZZ Computerized Tomography (CT Scan) of Bilateral Vertebral Arteries using Low Osmolar Contrast (ICD-10-PCS; 2018-02-19)
PROC: B3281ZZ Computerized Tomography (CT Scan) of Bilateral Internal Carotid Arteries using Low Osmolar Contrast (ICD-10-PCS; 2018-02-19)
DX: I63.40 Cerebral infarction due to embolism of unspecified cerebral artery (principal); I21.A1 Myocardial infarction type 2; I50.33 Acute on chronic diastolic (congestive) heart failure; N17.9 Acute kidney failure, unspecified; I13.0 Hypertensive heart and chronic kidney disease with heart failure and stage 1 through stage 4 chronic kidney disease, or unspecified chronic kidney disease; J98.11 Atelectasis; J44.9 Chronic obstructive pulmonary disease, unspecified; G40.909 Epilepsy, unspecified, not intractable, without status epilepticus; E03.9 Hypothyroidism, unspecified; Z60.2 Problems related to living alone; R55 Syncope and collapse; E78.00 Pure hypercholesterolemia, unspecified; E78.5 Hyperlipidemia, unspecified; E86.0 Dehydration; N18.3 Chronic kidney disease, stage 3 (moderate); Z90.49 Acquired absence of other specified parts of digestive tract; Z90.710 Acquired absence of both cervix and uterus; Z79.890 Hormone replacement therapy; Z79.899 Other long term (current) drug therapy; Z79.82 Long term (current) use of aspirin; Z86.73 Personal history of transient ischemic attack (TIA), and cerebral infarction without residual deficits; Z87.891 Personal history of nicotine dependence
CPT/HCPCS: 36415; 70450; 70496; 70498; 70544; 70551; 71045; 80053; 80061; 81003; 82550; 83036; 83690; 83735; 83880; 84100; 84443; 84484; 85025; 85379; 85610; 85730; 87070; 92616; 93005; 93306; 93880; 94760; 95816; 96360; 96361; 97110; 97116; 97161; 97530; 99285; G0378; J0360; J1644; J1940; J7030; Q0163; Q9967